=== PATIENT | male | born 1955 | race Caucasian/White ===

== ENCOUNTER 2019-02-20 15:12 | Emergency (ER) | payer OTHER ==
[~2019-02-20] VITALS: Ht 185.4 cm; Wt 108.9 kg
[2019-02-20] MEDS ORDERED: METF500 (17:06)
[2019-02-20] MEDS ORDERED: MORP15ER (17:07)
[2019-02-20] MEDS ORDERED: ROSU5 (17:07)
[2019-02-20] MEDS ORDERED: BACL10 (17:08)
[2019-02-20] MEDS ORDERED: TEMA7.5 (17:08)
== END 2019-02-20 16:40 | disposition home or self-care (01) ==
LOC: ER 15:12
DX: S20.212A Contusion of left front wall of thorax, initial encounter (principal); G89.29 Other chronic pain; Z88.5 Allergy status to narcotic agent; Z88.8 Allergy status to other drugs, medicaments and biological substances; W19.XXXA Unspecified fall, initial encounter
CPT/HCPCS: 71101; 96372; 99283-25; J1170